=== PATIENT | male | born 1960 | race Caucasian/White ===

== ENCOUNTER → 2017-04-09 | Outpatient (CLI) | payer BC, OTHER ==
[~2017-04-09] MED LIST: CLON0.1T12 PO; HYDR-5688 PO; RANI-316 PO
[2017-04-09 14:30] LABS: BLOOD UREA NITROGEN 20 mg/dl (7-18); CARBON DIOXIDE 27 mmol/L (21-32); CREATININE 1.04 mg/dl (0.60-1.40); GLUCOSE 120 mg/dl (70-99); POTASSIUM 3.8 mmol/L (3.5-5.1); SODIUM 135 mmol/L (136-145)
== END | disposition home or self-care (01) ==
LOC: C.LABPVFM 08:26 → MERGE 08:26
PROVIDERS: ATTEND Family Medicine
DX: R51 Headache (principal); I10 Essential (primary) hypertension

== ENCOUNTER → 2017-04-29 | Outpatient (CLI) | payer OTHER ==
--- NOTE | 2017-04-29 08:15 | DIAGNOSTIC IMAGING REPORT ---
CT PELVIS NO IV/ORAL CONT (CT) CT DOSE: 500.04 mGycm CLINICAL HISTORY: RT GROIN PAIN,HX OF INGUINAL HERNIA REPAIR TECHNIQUE: The patient was scanned without intravenous or oral contrast. Helical images were obtained through the pelvis. A dose lowering technique was utilized adhering to the principles of ALARA. COMPARISON STUDY: Inguinal ultrasound dated 10/13/2016 FINDINGS: The distal abdominal aorta is of normal caliber. There is no iliac artery dilatation. There is no pathologic bowel dilatation. There are few scattered colonic diverticula. There is no evidence of acute diverticulitis. The appendix appears normal. There is mild bladder wall thickening. There are prostatic calcifications present. There is no evidence of pathologic adenopathy. There is gas present within the posterior aspect of the right iliac bone. This finding is not felt to be of acute clinical significance. There are sclerotic changes involving the right symphysis pubis. There are mild symphysis erosive changes. There are postsurgical changes of a right inguinal hernia repair. There is a fat-containing left inguinal hernia versus lipomatous inguinal canal. IMPRESSION: 1. 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 Postsurgical changes are prior right inguinal hernia repair 3. Small fat-containing left inguinal hernia versus lipomatous inguinal canal 4. Bladder wall thickening 5. Normal appendix Electronically signed by: Miles Allen M.D. 04/29/2017 8:14 AM Dictated Date/Time: 04/29/2017 8:07 AM
== END | disposition home or self-care (01) ==
LOC: C.CTS 07:55
PROVIDERS: ATTEND Surgery
DX: R10.30 Lower abdominal pain, unspecified (principal); Z98.890 Other specified postprocedural states

== ENCOUNTER 2017-10-13 13:58 | Emergency (ER) | payer OTHER ==
[~2017-10-13] VITALS: Ht 167.6 cm; Wt 83.1 kg
[~2017-10-13 13:58] MED LIST changes: +AMLO10TA3 PO; -CLON0.1T12 PO; -HYDR-5688 PO; +IBUP-1050 PO; +METO25TA3 PO; +NAPR-22 PO; -RANI-316 PO
[2017-10-13 14:02] VITALS: Ht 167.6 cm; Wt 83.1 kg
[2017-10-13 14:15] VITALS: O2SAT 97
[2017-10-13] MEDS ORDERED: ACETAMINOPHEN 500 MG TAB PO STA (14:27)
[2017-10-13] MEDS ORDERED: SODIUM CHLORIDE 0.9% 500ML 500 ML IV STA (14:27)
[2017-10-13] MEDS ORDERED: PROCHLORPERAZINE 5 MG/ML 2 ML VIAL IV STA (14:27)
[2017-10-13] MEDS ORDERED: DiphenhydrAMINE HCL 50 MG/ML VIAL IV STA (14:27)
--- NOTE | 2017-10-13 14:28 | EMERGENCY ROOM VISIT NOTE ---
History Report prepared by Misty: James Hernandez Under the Supervision of: Dr. Nael Hidalgo M.D. First contact with patient: 14:08 Chief Complaint: HYPERTENSION Stated Complaint: HIGH BLOOD PRESSURE History of Present Illness The patient is a 57 year old white male with a past medical history of aortic stenosis, CAD, GERD, HTN, inguinal hernia removal who presents to the ED with a cc of constant hypertension beginning earlier today. Positive mild headache, blurry vision, occasional alcohol use. Negative focal weakness, taking blood thinning medication, changes to medication, missing medication doses, recent falls, hurting himself, drug use, tobacco use, drinking caffeine, cough, runny nose, congestion. Pt states he was at his PCP's office to get his prescriptions refilled when he was told to come to the ED because he had high blood pressure. He reports he has had an intermittent headache that lasts most of the day for the past three weeks. Pt notes he already take medication for his HTN. He states he took two ibuprofen the other day within 16 hours. Source of History: patient Onset: earlier today Quality: other (HTN) Timing: constant Associated Symptoms: + headache, No cough, No weakness Note: Associated symptoms: blurry vision Denies: taking blood thinning medication, changes to medication, missing medication doses, recent falls, hurting himself, drug use, tobacco use, drinking caffeine, runny nose, congestion Review of Systems See HPI for pertinent positives and negatives. A total of ten systems were reviewed and were otherwise negative. Past Medical & Surgical Medical Problems: (1) Aortic stenosis (2) CAD (coronary artery disease) (3) Cardiac murmur (4) Gastroesophageal reflux (5) Hypertension (6) Inguinal hernia, right (7) Pilonidal cyst Surgical Problems: (1) History of surgical removal of pilonidal cyst (2) History of umbilical hernia repair (3) Status post right inguinal herniorrhaphy Family History Cancer Heart disease Hypertension Social History Smoking Status: Never Smoker Alcohol Use: occasionally Marital Status: Housing Status: lives with significant other Occupation Status: employed Current/Historical Medications Scheduled Hydrochlorothiazide (Hydrochlorothiazide), 1 TAB PO DAILY Metoprolol Succ (Toprol Xl) (Toprol-Xl), 25 MG PO DAILY Metoprolol Succinate (Toprol Xl), 1 TAB PO BID Scheduled PRN Ibuprofen (Advil), 600 MG PO DAILY PRN for prn Tramadol (Ultram), 1 TAB PO TID PRN for Pain Miscellaneous Medications Clonidine HCl (Clonidine HCl) Allergies Coded Allergies: Codeine (Verified Allergy, Intermediate, Rash, 10/13/17) Lisinopril (Unverified Allergy, Unknown, hives, 10/13/17) Physical Exam Vital Signs Date Time Temp Pulse Resp B/P (MAP) Pulse Ox O2 Delivery O2 Flow Rate FiO2 10/13/17 15:29 36.6 65 15 152/96 96 10/13/17 15:00 65 15 152/96 96 Room Air 10/13/17 14:41 83 18 167/100 97 Room Air 10/13/17 14:21 78 10/13/17 14:15 97 Room Air 10/13/17 14:02 36.6 78 20 177/115 97 Room Air Physical Exam GENERAL: Awake, alert, well-appearing, NAD HENT: Normocephalic, atraumatic. EYES: Normal conjunctiva. Sclera non-icteric. PERRL. No anisocoria. NECK: Supple. No nuchal rigidity. FROM. RESPIRATORY: CTAB, no rhonchi, wheezing, crackles CARDIAC: RRR, no MRG ABDOMEN: Soft, NTND, BS+ MSK: No chest wall TTP, no LE edema NEURO: GCS 15, CN 2-12 intact, moves all 4s on command SKIN: No jaundice noted. Decreased pigmentation in the bilateral, distal, upper extremities. Medical Decision & Procedures ER Provider Diagnostic Interpretation: Radiology results as stated below per my review and radiologist interpretation: CT OF THE HEAD WITHOUT CONTRAST CLINICAL HISTORY: Persistent frontal headache. Hypertension. COMPARISON STUDY: No previous studies for comparison. CT DOSE: 537.48 mGy.cm TECHNIQUE: Helical axial images of the head were obtained without IV contrast. Automated exposure control was utilized for the study. A dose lowering technique was utilized adhering to the principles of ALARA. FINDINGS: No acute intracranial hemorrhage, midline shift or mass effect is present. Ventricular system is unremarkable. Basilar cisterns are patent. There are no extra-axial collections. Morton-white differentiation is maintained. There are no findings to suggest acute dural sinus thrombosis or acute territorial infarct. Minimal ethmoid sinus mucosal thickening is noted. Mastoid air cells are clear. There are no significant calvarial abnormalities. IMPRESSION: No acute intracranial findings. Electronically signed by: Serge Bolton M.D. 10/13/2017 2:53 PM Dictated Date/Time: 10/13/2017 2:51 PM Laboratory Results 10/13/17 14:20 Red Blood Count 5.14, Mean Corpuscular Volume 91.1, Mean Corpuscular Hemoglobin 32.5, Mean Corpuscular Hemoglobin Concent 35.7, Mean Platelet Volume 10.1, Neutrophils (%) (Auto) 74.3, Lymphocytes (%) (Auto) 16.1, Monocytes (%) (Auto) 4.8, Eosinophils (%) (Auto) 3.2, Basophils (%) (Auto) 0.9, Neutrophils # (Auto) 4.15, Lymphocytes # (Auto) 0.90, Monocytes # (Auto) 0.27, Eosinophils # (Auto) 0.18, Basophils # (Auto) 0.05 10/13/17 14:20 Test 10/13/17 14:20 White Blood Count 5.59 K/uL (4.8-10.8) Red Blood Count 5.14 M/uL (4.7-6.1) Hemoglobin 16.7 g/dL (14.0-18.0) Hematocrit 46.8 % (42-52) Mean Corpuscular Volume 91.1 fL (80-100) Mean Corpuscular Hemoglobin 32.5 pg (25-34) Mean Corpuscular Hemoglobin Concent 35.7 g/dl (32-36) Platelet Count 120 K/uL (130-400) Mean Platelet Volume 10.1 fL (7.4-10.4) Neutrophils (%) (Auto) 74.3 % Lymphocytes (%) (Auto) 16.1 % Monocytes (%) (Auto) 4.8 % Eosinophils (%) (Auto) 3.2 % Basophils (%) (Auto) 0.9 % Neutrophils # (Auto) 4.15 K/uL (1.4-6.5) Lymphocytes # (Auto) 0.90 K/uL (1.2-3.4) Monocytes # (Auto) 0.27 K/uL (0.11-0.59) Eosinophils # (Auto) 0.18 K/uL (0-0.5) Basophils # (Auto) 0.05 K/uL (0-0.2) RDW Standard Deviation 42.4 fL (36.4-46.3) RDW Coefficient of Variation 12.8 % (11.5-14.5) Immature Granulocyte % (Auto) 0.7 % Immature Granulocyte # (Auto) 0.04 K/uL (0.00-0.02) Prothrombin Time 10.5 SECONDS (9.0-12.0) Prothromb Time International Ratio 1.0 (0.9-1.1) Activated Partial Thromboplast Time 26.4 SECONDS (21.0-31.0) Partial Thromboplastin Ratio 1.0 Anion Gap 10.0 mmol/L (3-11) Est Creatinine Clear Calc Drug Dose 73.4 ml/min Estimated GFR () 84.4 Estimated GFR (Non- 72.8 BUN/Creatinine Ratio 17.8 (10-20) Calcium Level 8.7 mg/dl (8.5-10.1) Laboratory results reviewed by me Medications Administered Medications (Trade) Dose Ordered Sig/Brien Route Start Time Stop Time Status Last Admin Dose Admin Prochlorperazine Edisylate (Compazine Inj) 10 mg NOW STAT IV 10/13/17 14:27 10/13/17 14:31 DC 10/13/17 14:36 10 MG Acetaminophen (Tylenol Tab) 1,000 mg NOW STAT PO 10/13/17 14:27 10/13/17 14:31 DC 10/13/17 14:36 1,000 MG Diphenhydramine HCl (Benadryl Inj) 25 mg NOW STAT IV 10/13/17 14:27 10/13/17 14:31 DC 10/13/17 14:37 25 MG Sodium Chloride 500 ml @ 500 mls/hr Q1H STAT IV 10/13/17 14:27 10/13/17 15:26 DC 10/13/17 14:37 500 MLS/HR ECG Per My Interpretation Indication: other (HTN) Rate (beats per minute): 74 Rhythm: normal sinus Findings: Q waves (AVF), left axis deviation, other (Normal intervals.) ED Course 1418: The patient was evaluated in room A10. A complete history and physical exam was performed. 151: I reevaluated the patient. Discussed results and discharge instructions: he verbalized understanding and agreement. The patient is ready for discharge. Medical Decision The patient is a 57 year old white male with a past medical history of aortic stenosis, CAD, GERD, HTN, inguinal hernia removal who presents to the ED with a cc of constant hypertension beginning earlier today. Nursing notes reviewed. Ancillary studies and prior records reviewed. Differential diagnosis: Etiologies such as benign hypertension, hypertensive emergency, cardiovascular pathology, pheochromocytoma, electrolyte abnormality, renal disease, endorgan damage, as well as others were entertained. Patient was seen and evaluated the bedside. Patient does have a known history of hypertension. Patient states that he was seen for refills and he did relate that he had some headache with blurry vision. The patient does not use any corrective lenses. Patient was referred here for further evaluation and treatment with regard to his hypertension and additional symptoms. Patient has a nonfocal neurologic exam. The patient's vision is grossly intact. Patient does not complain of any chest pain or abdominal pain. Patient does complain of some headache that this is been chronic greater than 3 weeks in duration. The patient denies any recent trauma. The patient's headache was treated symptomatically and the patient did have some blood work completed along with a CT of the brain. Patient's blood work is fairly unremarkable. The patient CT brain negative acute. The patient's headache improved and the patient does not have any overt more concerning neurologic symptoms. I did discuss sometimes the high blood pressure may cause headache or vice versa. I did look the patient's prescription medications and stated that the patient may start taking his Toprol twice daily. I do believe that this is a reasonable approach. I did discuss some lifestyle modifications which included diet, exercise, and cessation of alcohol use. I told the patient to return if he has any worsening symptoms we did discuss him at length. The patient was told he had some mild hypokalemia and may replete this in his diet. Patient's blood pressure did improve with resolution of his headache. Patient was given strict follow-up, discharge, and return precautions. All questions were answered. Patient was deemed suitable for outpatient follow-up at this time. Patient agreed with the plan of care and was safely discharged home. Medication Reconcilliation Current Medication List: was personally reviewed by me Blood Pressure Screening Patient's blood pressure: Elevated blood pressure Blood pressure disposition: Referred to PCP Impression Primary Impression: Hypertension Additional Impressions: Hypokalemia Headache Encounter for dietary counseling and surveillance Encounter for alcohol cessation counseling Scribe Attestation The scribe's documentation has been prepared under my direction and personally reviewed by me in its entirety. I confirm that the note above accurately reflects all work, treatment, procedures, and medical decision making performed by me. Departure Information Dispostion Home / Self-Care Prescriptions Metoprolol Succinate (TOPROL XL) 25 Mg Tab 1 TAB PO BID for 30 Days, #60 TAB 1 Refill Prov: Nael Hidalgo M.D. 10/13/17 Referrals Sisi Soto M.D. (PCP) Forms HOME CARE DOCUMENTATION FORM, IMPORTANT VISIT INFORMATION, WORK / SCHOOL INSTRUCTIONS Patient Instructions Hypertension Control, My [facility] Additional Instructions Please return to the emergency department if you have worsening or recurrent symptoms not amenable to at-home treatment. Please call for a follow-up appointment with her primary care physician. Please take your medications as prescribed. If you have other concerns and/or complaints please feel free to also call your primary care physician's office or return the ED for further evaluation, management, and treatment. Take your medications as prescribed. You will now use the new prescription of taking the Toprol twice a day. You have been examined and treated today on an emergency basis only. This is not a substitute for, or an effort to provide, complete comprehensive medical care. It is impossible to recognize and treat all injuries or illnesses in a single emergency department visit. It is therefore important that you follow up closely with [facility], your PCP, and/or your specialist(s). Call as soon as possible for an appointment. Thank you for your time and consideration. I look forward to speaking with you again soon. Please don't hesitate to call us if you have any questions. Problem Qualifiers Primary Impression: Hypertension Hypertension type: unspecified Qualified Codes: I10 - Essential (primary) hypertension Additional Impressions: Headache Headache type: unspecified Headache chronicity pattern: chronic headache Intractability: not intractable Qualified Codes: R51 - Headache
[2017-10-13 14:41] LABS: BASO % 0.9 %; BASO ABS # 0.05 K/uL (0-0.2); EOS % 3.2 %; EOS ABS # 0.18 K/uL (0-0.5); HEMATOCRIT 46.8 % (42-52); HEMOGLOBIN 16.7 g/dL (14.0-18.0); IG# 0.04 K/uL (0.00-0.02); LYMPH % 16.1 %; MEAN CELL VOLUME 91.1 fL (80-100); MEAN CORPUSCULAR HEMOGLOBIN 32.5 pg (25-34); MEAN CORPUSCULAR HGB CONC 35.7 g/dl (32-36); MEAN PLATELET VOLUME 10.1 fL (7.4-10.4); MONO % 4.8 %; MONO ABS # 0.27 K/uL (0.11-0.59); NEUT % 74.3 %; NEUT ABS # 4.15 K/uL (1.4-6.5); PLATELET COUNT 120 K/uL (130-400); RED CELL DISTRIBUTION WIDTH CV 12.8 % (11.5-14.5); RED CELL DISTRIBUTION WIDTH SD 42.4 fL (36.4-46.3); WHITE BLOOD COUNT 5.59 K/uL (4.8-10.8)
[2017-10-13] MEDS ORDERED: TRAM-10 PO (14:48)
[2017-10-13] MEDS ORDERED: HYDR12.55 PO (14:48)
[2017-10-13] MEDS ORDERED: CLON-460 (14:48)
[2017-10-13 14:49] LABS: PTT PATIENT 26.4 SECONDS (21.0-31.0)
--- NOTE | 2017-10-13 14:55 | DIAGNOSTIC IMAGING REPORT ---
CT OF THE HEAD WITHOUT CONTRAST CLINICAL HISTORY: Persistent frontal headache. Hypertension. COMPARISON STUDY: No previous studies for comparison. CT DOSE: 537.48 mGy.cm TECHNIQUE: Helical axial images of the head were obtained without IV contrast. Automated exposure control was utilized for the study. A dose lowering technique was utilized adhering to the principles of ALARA. FINDINGS: No acute intracranial hemorrhage, midline shift or mass effect is present. Ventricular system is unremarkable. Basilar cisterns are patent. There are no extra-axial collections. Morton-white differentiation is maintained. There are no findings to suggest acute dural sinus thrombosis or acute territorial infarct. Minimal ethmoid sinus mucosal thickening is noted. Mastoid air cells are clear. There are no significant calvarial abnormalities. IMPRESSION: No acute intracranial findings. Electronically signed by: Serge Bolton M.D. 10/13/2017 2:53 PM Dictated Date/Time: 10/13/2017 2:51 PM
[2017-10-13 14:58] LABS: CALCIUM 8.7 mg/dl (8.5-10.1); CREATININE 1.11 mg/dl (0.60-1.40); POTASSIUM 3.2 mmol/L (3.5-5.1)
[2017-10-13] MEDS ORDERED: METO-478 PO (15:18)
[2017-10-13 15:29] VITALS: BP 152/96; PULSE 65; TEMP 36.6; O2SAT 96
== END 2017-10-13 15:40 | disposition home or self-care (01) ==
LOC: C.EDB 13:59 → C.EDA 15:40
DX: I10 Essential (primary) hypertension (principal); R51 Headache; E87.6 Hypokalemia; Z71.6 Tobacco abuse counseling; Z71.3 Dietary counseling and surveillance; I35.0 Nonrheumatic aortic (valve) stenosis; I25.10 Atherosclerotic heart disease of native coronary artery without angina pectoris; K21.9 Gastro-esophageal reflux disease without esophagitis; Z79.899 Other long term (current) drug therapy; Z88.5 Allergy status to narcotic agent

== ENCOUNTER 2022-04-20 06:27 | Observation (INO) ==
--- NOTE | 2022-03-06 11:10 | PAT Medication Instructions ---
Medication Instructions Date of Service March 06, 2022 Home Medications Medication Instructions Recorded valsartan 160 0.5 tab PO BID #30 tabs 07/24/ mg-hydrochlorothiazide 25 mg tablet hydrochlorothiazide 25 mg tablet 25 mg PO BID #60 tabs 08/28/21 potassium chloride 20 mEq 20 meq PO BID #180 tabs 09/25/21 tablet,extended release metoprolol succinate 50 mg 25 mg PO BID #30 tabs 10/09/21 tablet,extended release 24 hr tamsulosin 0.4 mg capsule (Flomax) 0.4 mg PO HS #90 caps 12/18/21 oxycodone-acetaminophen 5 mg-325 1 tab PO Q6H PRN pain #30 tabs 01/02/22 mg tablet (Percocet) losartan 25 mg tablet 25 mg PO BID #60 tabs 01/23/22 tramadol 50 mg tablet 50 mg PO Q8H PRN pain #30 tabs 02/17/22 ibuprofen 200 mg tablet (Advil) 600 mg PO BID PRN qxufqbb-iicmtqqhlskra-aelivrio 250 mg-250 mg-65 mg tablet 1 tab PO TID PRN valsartan 160 mg-hydrochlorothiazide 25 mg tablet 0.5 tab PO BID gabapentin 100 mg capsule 100 mg PO TID PRN hydrochlorothiazide 25 mg tablet 25 mg PO BID potassium chloride 20 mEq tablet,extended release 20 meq PO BID metoprolol succinate 50 mg tablet,extended release 24 hr 25 mg PO BID tamsulosin 0.4 mg capsule (Flomax) 0.4 mg PO HS oxycodone-acetaminophen 5 mg-325 mg tablet (Percocet) 1 tab PO Q6H PRN losartan 25 mg tablet 25 mg PO BID tramadol 50 mg tablet 50 mg PO Q8H PRN amlodipine 10 mg tablet 10 mg PO QAM clonidine HCl 0.1 mg tablet 0.1 mg PO QAM meloxicam 15 mg tablet 15 mg PO QAM Continue as directed gabapentin 100 mg capsule 100 mg PO TID PRN(if needed) ASK your surgeon for instructions ibuprofen 200 mg tablet (Advil) 600 mg PO BID PRN hozfzwi-vofjmyursjmos-gcllaphv 250 mg-250 mg-65 mg tablet 1 tab PO TID PRN meloxicam 15 mg tablet 15 mg PO QAM DO NOT take the morning of surgery valsartan 160 mg-hydrochlorothiazide 25 mg tablet 0.5 tab PO BID hydrochlorothiazide 25 mg tablet 25 mg PO BID potassium chloride 20 mEq tablet,extended release 20 meq PO BID losartan 25 mg tablet 25 mg PO BID Take morning of surgery With a small sip of water, OTHERWISE NOTHING TO EAT OR DRINK AFTER MIDNIGHT: metoprolol succinate 50 mg tablet,extended release 24 hr 25 mg PO BID oxycodone-acetaminophen 5 mg-325 mg tablet (Percocet) 1 tab PO Q6H PRN(if needed) tramadol 50 mg tablet 50 mg PO Q8H PRN(if needed) amlodipine 10 mg tablet 10 mg PO QAM clonidine HCl 0.1 mg tablet 0.1 mg PO QAM Take evening before surgery valsartan 160 mg-hydrochlorothiazide 25 mg tablet 0.5 tab PO BID hydrochlorothiazide 25 mg tablet 25 mg PO BID potassium chloride 20 mEq tablet,extended release 20 meq PO BID metoprolol succinate 50 mg tablet,extended release 24 hr 25 mg PO BID tamsulosin 0.4 mg capsule (Flomax) 0.4 mg PO HS oxycodone-acetaminophen 5 mg-325 mg tablet (Percocet) 1 tab PO Q6H PRN(if needed) losartan 25 mg tablet 25 mg PO BID tramadol 50 mg tablet 50 mg PO Q8H PRN(if needed) Other Notes If you have any questions please call us at [phone] or [phone] or [phone] or [phone]
--- NOTE | 2022-03-12 12:56 | Anesthesiology Consultation ---
Date of Service March 12, 2022 Assessment & Plan (1) Encounter for pre-operative examination: - listed CAD in PMHx, pt denies, no additional details available. Awaiting PCP workload note response. Outpatient joint assessment: Patient is currently scheduled for inpatient pathway. If re-evaluated pending system levels during current pandemic/surgeon requests outpatient pathway, patient is not acceptable candidate for outpatient joint program from anesthesia standpoint. Chart Review Chart Review: Pending: Refer to Additional Notes / Consult section and Patient seen in Pre Admission Testing Teaching & Discussion Pre-Anesthesia Teaching/Discussion Notes: Instructed NPO after midnight before surgery, except medications with 15 cc of water. Medication instructions provided according to the PAT guidelines. History Surgery Operation Date: 04/20/22 07:30 Proposed Procedures p Left Total Knee Arthroplasty - Vincent Todd DO Height/Weight Height: 5 ft 6 in Weight: 85.275 kg Allergies Allergy/AdvReac Type Severity Reaction Status Date / Time codeine Allergy Intermediate Rash Verified 03/06/22 08:50 lisinopril Allergy Intermediate hives Verified 03/06/22 08:50 Medications Home Medications Medication Instructions Recorded Confirmed Last Taken ibuprofen 200 mg tablet (Advil) 600 mg PO BID PRN Pain 07/14/18 03/06/22 10/01/18 gdcqgha-apqkxqcyvwfjz-tuqqokgl 250 1 tab PO TID PRN Migraine Headache 12/02/18 03/06/22 12/12/18 11:00 mg-250 mg-65 mg tablet #30 tabs gabapentin 100 mg capsule 100 mg PO TID PRN Pain 07/11/21 03/06/22 Unknown hydrochlorothiazide 25 mg tablet 25 mg PO BID #60 tabs 08/28/21 03/06/22 Unknown potassium chloride 20 mEq 20 meq PO BID #180 tabs 09/25/21 03/06/22 Unknown tablet,extended release metoprolol succinate 50 mg 25 mg PO BID #30 tabs 10/09/21 03/06/22 Unknown tablet,extended release 24 hr tamsulosin 0.4 mg capsule (Flomax) 0.4 mg PO HS #90 caps 12/18/21 03/06/22 Unknown oxycodone-acetaminophen 5 mg-325 1 tab PO Q6H PRN pain #30 tabs 01/02/22 03/06/22 Unknown mg tablet (Percocet) losartan 25 mg tablet 25 mg PO BID #60 tabs 01/23/22 03/06/22 Unknown tramadol 50 mg tablet 50 mg PO Q8H PRN pain #30 tabs 02/17/22 03/06/22 Unknown amlodipine 10 mg tablet 10 mg PO QAM 03/06/22 03/06/22 Unknown clonidine HCl 0.1 mg tablet 0.1 mg PO QAM 03/06/22 03/06/22 Unknown meloxicam 15 mg tablet 15 mg PO QAM 03/06/22 03/06/22 Unknown Past Medical History Medical History (Updated 03/12/22 @ 13:45 by Amanda Gomez PA-C) Aortic stenosis listed in PMHx, 02/27/22 echo reports sclerotic aortic valve without signifi cant stenosis. follows with [facility] BPH (benign prostatic hyperplasia) CAD (coronary artery disease) pt denies, reports has never needed to see cardiology, no h/o cath or stress test; listed in record 05/19/17 GERD (gastroesophageal reflux disease) controlled, stable per pt Hearing loss HTN (hypertension) controlled, stable per pt Hx of colonic polyps Hx of renal calculi LVH (left ventricular hypertrophy) moderate URI (upper respiratory infection) symptoms of congestion, runny nose early 02/2022: mild nasal congestion at present, pt to call office if not resolved by surgery date Patient denies h/o stroke, seizures, heart attack, heart failure, DM, blood clots or blood transfusions. Exercise / Class Metabolic Activity II 4-5 Yardwork/Stairs/Walk up hill (denies CP or SOB with 1 FOS) Past Family History Family History Mother Pancreatic cancer Father Cardiovascular disease Cardiac disorder Other No family history of adverse response to anesthesia Denies family history of Ovarian cancer Prostate cancer Myocardial infarction Breast cancer Colorectal cancer Past Surgical History Surgical History (Updated 03/12/22 @ 13:12 by Amanda Gomez PA-C) History of colonoscopy History of cystoscopy 10/03/18 cyst stent 10/03/18 LMA#5. History of hernia repair 2017 RIGHT INGUINAL HERNIA 11/02/16 - MAC #4, ETT#7.5, HiLo oral, Grade 1 View History of surgical removal of pilonidal cyst History of tooth extraction History of umbilical hernia repair Hx of abdominal surgery removal of right inguinal hernia mesh removal 02/2021. Past Anesthesia History No Hx of Anesthesia Complications and No Family Hx of Anesthesia Complications History of PONV No Hx of PONV and No Hx of Motion Sickness Social History Smoking Status: Former smoker tobacco type: cigarettes Do You Dip or Chew Tobacco: No Smoking End Date: 1985 Hx Alcohol Use: Yes Alcohol type: beer alcohol intake frequency: 3 or more drinks per day (4 drinks daily) Hx Substance Use: No substance use type: does not use Review of Systems Snoring, denies witnessed apneas. Patient denies chest pain, shortness of breath, dyspnea on exertion, fever, chills, cough, wheezing, or palpitations. Physical Exam Vital Signs Vitals BP 144/85 P 69 TEMP 98.8 SP02 97% on RA RESP 18 Physical Full cervical extension range of motion without pain TMD 3.5 finger breadths Mallampati Score 3 Dentition: several chipped teeth; denies loose teeth, caps/crowns, implants or bridges Lungs: normal respiratory effort. Clear throughout to auscultation, no adventitious breath sounds Cardiac: regular rate and rhythm, 2/6 systolic murmur noted Carotid arteries: negative bruit bilat Lab Results Anesthesia Preop Results Results Anesthesia Widget: WBC 5.64 K/ul (4.8-10.8) 03/12/22 Hgb 14.8 g/dl (14.0-18.0) 03/12/22 Hct 41.6 % (40.1-51.0) 03/12/22 Plt 130 K/uL (130-400) 03/12/22 Na 135 mmol/L (136-145) L 03/12/22 K 3.4 mmol/L (3.5-5.1) L 03/12/22 Cl 97 mmol/L (98-107) L 03/12/22 CO2 31 mmol/L (21-32) 03/12/22 BUN 23 mg/dl (6-23) 03/12/22 Creat 0.78 mg/dl (0.6-1.4) 03/12/22 Glucose Level 103 mg/dl (70-99(Fasting)) H 03/12/22 PT 10.6 Seconds (9.0-12.0) 03/12/22 PTT 28.3 Seconds (21.0-31.0) 03/12/22 INR 1.0 (0.9-1.1) 03/12/22 HA1c 4.8 % (4.5-5.6) 03/12/22 Blood Type O Positive 03/12/22 Antibody Screen NEGATIVE 03/12/22 Testing Electrocardiogram Date: 03/12/22 NSR, rate 66 bpm Echocardiogram Date: 02/27/22 EF 60-65% No LV regional wall motion abnormalities Moderate cLVH Sclerotic aortic valve without significant stenosis Mild mitral regurgitation Mild tricuspid regurgitation COVID-19 Risk Screen Screening Information COVID-19 Screen Date: 03/12/22 Exposure 21 Days Family/Household +COVID Last 21 Days: No Exposure 10 Days Any COVID Exposure Last 10 Days: No Symptoms Last 10 Days Experienced COVID Sx Last 10 Days: No + COVID 0-90 Days COVID + in Last 0-90 Days: No
--- NOTE | 2022-04-16 16:33 | History & Physical Report ---
Date of Service April 16, 2022 Assessment & Plan (1) Left knee DJD: We will proceed with a left total knee arthroplasty. Postoperatively he will be started on aspirin for DVT prophylaxis and kept overnight in the hospital for postoperative medical management. He plans to use energy physical therapy upon discharge. History of Present Illness Chief Complaint: Osteoarthritis of the left knee. Primary Care Provider: Agus Falcon DO Agus is a pleasant 61-year-old male who has been dealing with chronic worsening left knee pain. X-rays and clinical examination with diagnostics for advanced osteoarthritis of the left knee. After failing extensive conservative treatment, he presents to the office today to discuss knee replacement surgery. . Allergies Allergy/AdvReac Type Severity Reaction Status Date / Time codeine Allergy Intermediate Rash Verified 03/06/22 08:50 lisinopril Allergy Intermediate hives Verified 03/06/22 08:50 Home Medications Medication Instructions Recorded Confirmed Type ibuprofen 200 mg tablet (Advil) 600 mg PO BID PRN Pain 07/14/18 03/06/22 History zbnaaxi-nsdloebyopwdo-dniqbhtn 250 1 tab PO TID PRN Migraine Headache 12/02/18 03/06/22 History mg-250 mg-65 mg tablet #30 tabs gabapentin 100 mg capsule 100 mg PO TID PRN Pain 07/11/21 03/06/22 History hydrochlorothiazide 25 mg tablet 25 mg PO BID #60 tabs 08/28/21 03/06/22 Rx potassium chloride 20 mEq 20 meq PO BID #180 tabs 09/25/21 03/06/22 Rx tablet,extended release metoprolol succinate 50 mg 25 mg PO BID #30 tabs 10/09/21 03/06/22 Rx tablet,extended release 24 hr tamsulosin 0.4 mg capsule (Flomax) 0.4 mg PO HS #90 caps 12/18/21 03/06/22 Rx oxycodone-acetaminophen 5 mg-325 1 tab PO Q6H PRN pain #30 tabs 01/02/22 03/06/22 Rx mg tablet (Percocet) losartan 25 mg tablet 25 mg PO BID #60 tabs 01/23/22 03/06/22 Rx amlodipine 10 mg tablet 10 mg PO QAM 03/06/22 03/06/22 History clonidine HCl 0.1 mg tablet 0.1 mg PO QAM 03/06/22 03/06/22 History meloxicam 15 mg tablet 15 mg PO QAM PRN pain #30 tabs 03/31/22 Rx oxycodone-acetaminophen 5 mg-325 1 tab PO Q6H PRN pain #30 tabs 04/03/22 Rx mg tablet (Percocet) tramadol 50 mg tablet 50 mg PO Q8H PRN pain #30 tabs 04/14/22 Rx Past Med/Surg History Medical History Aortic stenosis listed in PMHx, 02/27/22 echo reports sclerotic aortic valve without significant stenosis. follows [place] [facility] BPH (benign prostatic hyperplasia) CAD (coronary artery disease) pt denies, reports has never needed to see cardiology, no h/o cath or stress test; listed in record 05/19/17 GERD (gastroesophageal reflux disease) controlled, stable per pt Hearing loss HTN (hypertension) controlled, stable per pt Hx of colonic polyps Hx of renal calculi LVH (left ventricular hypertrophy) moderate URI (upper respiratory infection) symptoms of congestion, runny nose early 02/2022: mild nasal congestion at present, pt to call office if not resolved by surgery date Surgical History History of colonoscopy History of cystoscopy 10/03/18 cyst stent 10/03/18 LMA#5. History of hernia repair 2017 RIGHT INGUINAL HERNIA 11/02/16 - MAC #4, ETT#7.5, HiLo oral, Grade 1 View History of surgical removal of pilonidal cyst History of tooth extraction History of umbilical hernia repair Hx of abdominal surgery removal of right inguinal hernia mesh removal 02/2021. Family History Mother Pancreatic cancer Father Cardiovascular disease Cardiac disorder Other No family history of adverse response to anesthesia Denies family history of Ovarian cancer Prostate cancer Myocardial infarction Breast cancer Colorectal cancer Social History Smoking Status: Former smoker Tobacco Type: Cigarettes Second Hand Exposure: No; Hx Alcohol Use: Yes Alcohol type: beer Hx Substance Use: No Preferred Language: Spanish Communication Ability: Effective Visual Impairment: No Limitations Hearing Ability: Hard of Hearing Medical Assistant Cardiology Required: No Beliefs That Will Affect Care: None marital status: Current Living Situation: Spouse current occupational status: employed current occupation: auto repair Childhood Exposure to Second-Hand Smoke: No Dental Care, Regularly: No Physical Activity Frequency: Does not Exercise Seatbelt Use: never Sunscreen Use: No Assistive Devices: None Review of Systems All systems reviewed & are unremarkable except as noted in HPI & below. Physical Exam On physical examination of the left knee, he is a slight varus deformity. He has pain over the distal medial femoral condyle. He is range of motion from 0 to 120 degrees.. Constitutional WD/WN, vitals as above Eyes PERRL, conjunctivae normal, anicteric sclerae ENMT external ear and nose normal, oropharynx normal Neck trachea midline, no thyromegaly Respiratory normal respiratory effort, lungs clear to auscultation Cardiovascular RRR, no murmur, no edema Gastrointestinal (Abdomen) normal bowel sounds, soft, nontender, no hepatosplenomegaly Skin no rashes, warm and dry Psychiatric A+Ox3, euthymic affect Results & Data Results & Data Laboratory Results . Diagnostic Findings X-rays of the left knee show advanced arthritis with joint space narrowing, osteophyte formation, and jyjm-lj-rirn articulation. PG Care Time/CCT Total # of Minutes Spent Total Time Spent with Patient: Total time spent is greater than 50% in coordination of care (as documented) at patient's floor/unit and/or counseling patient: Coding Level of Care Code None Diagnoses Left knee DJD M17.12
[~2022-04-20 06:27] MED LIST changes: +ACETAMINOPHEN 500 MG TAB PO SCH; -AMLO10TA3 PO; +BUPIVACAINE 0.5 % 5 MG/1 ML PF 10ML VIAL ONE; +FAMOTIDINE 20 MG TAB PO SCH; +GABAPENTIN 600 MG DOSE PO SCH; -IBUP-1050 PO; +LR 500ML BOLUS, THEN 15ML/HR IV SCH; +LR 60ML/HR IV SCH; -METO25TA3 PO; -NAPR-22 PO; +ORTHO JOINT MIX INFIL SCH; +ROPIVACAINE 0.5% 5 MG/ML 30 ML VIAL ONE; +TRANEXAMIC ACID 1,000 MG **IV Intra-op IV SCH; +TRANEXAMIC ACID 1,000 MG **IV Pre-op IV SCH; +ceFAZolin 2000MG 2,000 MG/15 ML SYR IV SCH; +dexAMETHasone 4 MG TAB PO SCH
[2022-04-20] MEDS ORDERED: PROPOFOL IV EMULSION 10 MG/ML 20 ML VIAL IV ONE (07:22)
[2022-04-20] MEDS ORDERED: MIDAZOLAM HCL 1 MG/ML 2ML VIAL ONE (07:22)
[2022-04-20] MEDS ORDERED: LIDOCAINE 2% MPF LOCAL 5 ML VIAL INFIL ONE (07:22)
[2022-04-20] MEDS ORDERED: ONDANSETRON INJ 2 MG/ML 2 ML VIAL ONE (07:22)
[2022-04-20] MEDS ORDERED: ACETAMINOPHEN 500 MG TAB ONE (07:25)
[2022-04-20] MEDS ORDERED: dexAMETHasone 4 MG TAB PO ONE (07:25)
[2022-04-20] MEDS ORDERED: ceFAZolin 2,000 MG/15 ML IV PUSH IV ONE (07:26)
[2022-04-20] MEDS ORDERED: TRANEXAMIC ACID / 0.7% NACL 1000MG/100ML BAG IV ONE (07:26)
[2022-04-20] MEDS ORDERED: GABAPENTIN 300 MG CAP ONE (07:26)
[2022-04-20] MEDS ORDERED: FAMOTIDINE 20 MG TAB ONE (07:26)
[2022-04-20] MEDS ORDERED: ATROPINE SULFATE 0.1 MG/ML 10ML SYR IV PRN (07:49)
[2022-04-20] MEDS ORDERED: ePHEDrine sulfate 50 MG/ML AMP IV PRN (07:49)
[2022-04-20] MEDS ORDERED: ONDANSETRON INJ 2 MG/ML 2 ML VIAL IV PRN ×2 (07:49→11:34)
[2022-04-20] MEDS ORDERED: fentaNYL citrate 100 MCG/2 ML VIAL IV PRN (07:49)
--- NOTE | 2022-04-20 08:27 | History & Physical Bridge Note ---
Date of Service April 20, 2022 History & Physical Bridge Note I have examined the patient, reviewed the History & Physical and in the interval since the performance of the History & Physical I have noted the following changes of clinical significance: no changes noted
[2022-04-20] MEDS ORDERED: ORTHO JOINT ANESTHETIC ONE (09:09)
[2022-04-20] MEDS: ceFAZolin 2000MG 2,000 MG/15 ML SYR IV SCH ×4 (09:11→23:54)
--- NOTE | 2022-04-20 10:20 | Operative Report ---
PG Post Operative Report Pre & Post Diagnosis Operation Date: 04/20/22 09:05 Pre-Op Diagnosis: Degenerative joint disease knee left. Post-Op Diagnosis: Degenerative joint disease knee left. I identified the patient and participated in the time-out.: Yes Procedure Operation Date: 04/20/22 09:05 Actual Procedures p Left Total Knee Arthroplasty(Left) - Vincent Todd DO Surgeon Vincent Todd DO Drywall Installer Vincent Strong PA-C Estimated Blood Loss 20 Findings Consistent with Post-Op Diagnosis Specimens Left femoral and tibial bone Description of Procedure Implants used: I used a Elvie Persona total knee arthroplasty system with a size 8 standard femur, E tibia, 31 oval patella, and a size 11 medial congruent polyethylene bearing. All components were cemented in place with Biomet cement. Agus arrived [facility] for the above procedure. He was seen in the preoperative holding area and the operative extremity was identified and signed. He was given a preoperative antibiotic, TXA, a spinal anesthetic and an adductor nerve block. He was taken back to the operating room and laid on the table in supine position. He was given basic sedation. The operative knee was then prepped and draped in sterile fashion. A timeout was done, and the patient and the operative extremity was properly identified. A midline incision was made directly over the patella. Dissection was taken down to the extensor mechanism. A midvastus arthrotomy was used. The medial retinaculum was released and the fat pad was mostly excised. The knee was flexed and the ACL, PCL, and meniscus were removed. A drill was sent down the center of the femoral canal followed by an intramedullary edilma. Off that edilma a distal femoral cutting block was placed. 9 mm was resected off the distal femur at 5 of valgus. A posterior referencing AP sizing guide was then placed on the distal femur. The femur measured to be a size 8. 2 drill holes were placed in 3 of external rotation. A 4-in-1 cutting block was then impacted into place. Anterior, posterior, and chamfer cuts were then made. The proximal tibia was then exposed. An external tibial alignment guide was placed. A tibial cut guide was then anchored in place and the proximal tibia was then resected. The posterior aspect of the knee was then opened up and any additional meniscus fragments and osteophytes were removed. The tibia measured to be a size E. The tibial plate was then placed in the appropriate rotation and the tibia was drilled and punched. Trial components were then placed. I used a size 11 medial congruent polyethylene insert. The knee was brought through a full range of motion and felt to be stable. The peg holes for the femoral component were then drilled. The patella was then everted and 9 mm was resected off the posterior aspect of the patella. The patella measured to be a size 31 oval. 3 peg holes were then drilled. A trial patella was placed. The knee was once again brought through a full range of motion and felt to be stable. Trial components were then removed. The surrounding soft tissues were injected with 100 cc of an orthopedic pain control cocktail. All components were then cemented into place with Biomet cement. The final polyethylene insert was then snapped into place. Once cement was dry the tourniquet was deflated. Hemostasis was obtained. A dilute betadyne lavage was then done for 3 minutes. The joint was then irrigated with normal saline solution. The midvastus arthrotomy was then closed with #1 Vicryl suture. The skin was closed with 2-0 Vicryl, 3-0V lock suture, and bao. A soft compressive dressing was placed. He was then transferred to a hospital bed and taken to the postanesthesia care unit in stable condition. He tolerated the procedure well. Vincent Strong PA-C, was present for the entire procedure. He was critical for patient positioning, prepping, draping, retraction exposure, wound closure and application of sterile dressing. I attest to the content of the Intraoperative Record and any orders documented therein. Any exceptions are noted below.
[2022-04-20] MEDS ORDERED: ePHEDrine sulfate 50 MG/ML AMP ONE (10:27)
--- NOTE | 2022-04-20 11:21 | XRay Report ---
LEFT KNEE 2 VIEWS History: Left total knee arthroplasty. Degenerative arthritis. Postop. FINDINGS: The patient is status post a left total knee arthroplasty. The hardware is intact. No fract ure or dislocation. Skin bao are in place. IMPRESSION: Left total knee arthroplasty. No evidence for hardware complication. ACT 112: Negative or not required by law. Electronically signed by: Jw Savage M.D. 04/20/2022 11:20 AM
[2022-04-20] MEDS ORDERED: bisacodyL 10 MG SUPP PR PRN (11:34)
[2022-04-20] MEDS ORDERED: GABAPENTIN 100 MG CAP PO PRN (11:34)
[2022-04-20] MEDS ORDERED: HYDROmorphone INJ 0.5 MG/0.5 ML SYR IV PRN (11:34)
[2022-04-20] MEDS ORDERED: NALOXONE HCL 0.4 MG/1 ML VIAL/CARP IV PRN (11:34)
[2022-04-20] MEDS ORDERED: METOCLOPRAMIDE HCL INJ 5 MG/ML 2 ML VIAL IV PRN (11:34)
[2022-04-20] MEDS ORDERED: MAGNESIUM HYDROXIDE SUSP 30 ML UDC PO PRN (11:34)
--- NOTE | 2022-04-20 11:44 | Anesthesiology Progress Note ---
Date of Service April 20, 2022 Anesthesia Post Procedure Vital Signs Vital Signs: Temp Pulse Pulse Resp BP Pulse Ox O2 Del Method 04/20/22 10:50 65 14 111/71 100 Oxymask 04/20/22 11:20 64 15 106/65 93 Room Air 04/20/22 11:10 97.7 F 66 15 98/59 L 95 Room Air 04/20/22 11:00 73 18 107/57 L 94 Room Air 04/20/22 10:40 70 14 108/51 L 100 Oxymask 04/20/22 10:39 97.5 F L 70 12 107/67 100 Oxymask 04/20/22 07:13 98.2 F 71 20 130/83 97 Room Air O2 Flow Rate 04/20/22 10:50 3 04/20/22 11:20 04/20/22 11:10 04/20/22 11:00 04/20/22 10:40 6 04/20/22 10:39 6 04/20/22 07:13 Pain Intensity Left Knee: Pain Intensity: 3 Transfer of Care Handoff Completed per policy Notes Mental Status: alert / awake / arousable and participated in evaluation Patient Amnestic to Procedure: Yes Nausea / Vomiting: adequately controlled Pain: adequately controlled Airway Patency, RR, SpO2: stable & adequate BP & HR: stable & adequate Hydration State: stable & adequate Neuraxial Anesthesia: was administered and sensory block is resolving Anesthetic Complications: no major complications apparent and Pt Satisfied with anesthetic care
[2022-04-20] MEDS: SODIUM CHLORIDE 0.9% 1000ML 1,000 ML IV SCH ×2 (12:35→21:11)
[2022-04-20] MEDS: KETOROLAC 30 MG/ML VIAL IV SCH ×3 (12:35→23:54)
[2022-04-20] MEDS: ACETAMINOPHEN 500 MG TAB PO SCH ×2 (14:09→21:11)
[2022-04-20] MEDS: oxyCODONE HCL IR 5 MG TAB (IMMEDIATE RELEASE) PO PRN (18:10)
[2022-04-20] MEDS: MISSING Provider Signature on ORDER(s) SCH ×2 (19:20→23:47)
[2022-04-20] MEDS: METOPROLOL SUCC 25MG EXT REL TAB PO SCH (20:04)
[2022-04-20] MEDS: POTASSIUM CHLORIDE CRTAB 20 MEQ TABCR PO SCH (20:04)
[2022-04-20] MEDS: hydroCHLOROthiazide 25 MG TAB PO SCH (20:04)
[2022-04-20] MEDS: ASPIRIN 81 MG ECTAB PO SCH (20:05)
[2022-04-20] MEDS: LOSARTAN POTASSIUM 25 MG TAB PO SCH (20:05)
[2022-04-20] MEDS: DOCUSATE SODIUM 100 MG CAP PO SCH (20:05)
[2022-04-20] MEDS ORDERED: SENNA 8.6 MG TAB PO SCH (21:00)
[2022-04-20] MEDS ORDERED: TAMSULOSIN HCL 0.4 MG CAP PO SCH (21:00)
[2022-04-21] MEDS: MISSING Provider Signature on ORDER(s) SCH ×6 (01:06→08:58)
[2022-04-21] MEDS: KETOROLAC 30 MG/ML VIAL IV SCH (05:26)
[2022-04-21] MEDS: ACETAMINOPHEN 500 MG TAB PO SCH (05:27)
--- NOTE | 2022-04-21 06:54 | Orthopedic Progress Note ---
Date of Service April 21, 2022 Assessment & Plan (1) Status post left knee replacement: Overall is doing very well. Is not having much pain in the left knee. He will be seen by physical therapy today for ambulation and range of motion exercises. He is on aspirin for DVT prophylaxis. The dressing can be changed after physical therapy today. He can be discharged home later today. He will follow- up with orthopedics in 2 weeks. Caron Goldsmith was seen and examined at bedside this morning. Overall is doing well. Is not having much pain in the left knee. He has been up and ambulating to the bathroom. He has no complaints.. Review of Systems All systems reviewed & are unremarkable except as noted in HPI & below. Physical Exam On physical examination of the left knee, the dressing is clean and dry. His leg is out in full extension. He has active dorsiflexion plantarflexion of his left ankle. Sensation is intact throughout.. Results & Data Results & Data Laboratory Results . Diagnostic Findings Postoperative x-rays of the left knee show the prosthesis to be in anatomic alignment without any evidence of fracture, screws, or loosening. PG Care Time/CCT Total # of Minutes Spent Total Time Spent with Patient: Total time spent is greater than 50% in coordination of care (as documented) at patient's floor/unit and/or counseling patient: Coding Level of Care Code 34554 Post Operative Follow-Up Diagnoses Status post left knee replacement Z96.652
--- NOTE | 2022-04-21 06:55 | Discharge Summary ---
Date of Service April 21, 2022 Admission HPI (Per Admitting) Agus is a pleasant 61-year-old male who has been dealing with chronic worsening left knee pain. X-rays and clinical examination with diagnostics for advanced osteoarthritis of the left knee. After failing extensive conservative treatment, he presents to the office today to discuss knee replacement surgery. . Admission Exam (Per Admitting) On physical examination of the left knee, he is a slight varus deformity. He has pain over the distal medial femoral condyle. He is range of motion from 0 to 120 degrees.. Principal Diagnosis Same as "Discharge Diagnosis" noted below under Discharge Instructions. Discharge Exam On physical examination of the left knee, the dressing is clean and dry. His leg is out in full extension. He has active dorsiflexion plantarflexion of his left ankle. Sensation is intact throughout.. Discharge Data Procedures Performed Operation Date: 04/20/22 09:05 Actual Procedures p Left Total Knee Arthroplasty(Left) - Vincent Todd DO Ordered Studies 04/20/22 05:00 US - OR guided needle placemen Routine Hospital Course (1) Status post left knee replacement: On April 20, [address] [facility] and underwent a left knee replacement without complication. He had a spinal anesthetic. Postoperatively he was started on aspirin for DVT prophylaxis and transferred to the general orthopedic floors. His hospital course was uneventful. On postop day #1, his vital signs were stable and his pain was well controlled. He was able to participate well with physical therapy doing ambulation and range of motion exercises. He was then discharged home. He will follow-up with orthopedics in 2 weeks. PG Care Time/CCT Total # of Minutes Spent Total Time Spent with Patient: Total time spent is greater than 50% in coordination of care (as documented) at patient's floor/unit and/or counseling patient: Discharge Plan Discharge Items Patient Disposition: Home - Home Health Services Reason For Visit: POST OP Discharge Diagnosis: Left knee replacement Activity: Per Instructions section Non-emergency contact: Surgeon Call non-emergency contact if: your wound has increased redness and your wound has increased drainage Follow-up/Referrals: Agus Falcon DO [Primary Care Provider] - Diet: Regular Addtl Attending Provider Instructions: Activity and Therapy Recommendations: * If you are using [facility] then therapy will be provided at your home until they feel you have accomplished all of your goals. * If you are using [facility] then Physical Therapy will be provided until they feel you are ready to start Outpatient Physical Therapy. * If you are not using home therapy then Outpatient Physical Therapy should start about 3-5 days from your day of surgery. Therapy will last about 6-10 weeks * It is important not to put a pillow under your knee when you are relaxing or sleeping. It is just as important to make sure you are getting your knee perfectly straight as it is to regain your knee bend. * You were shown a series of exercises in the hospital. Do these exercises three times each day including the exercises you were shown in physical therapy. * Get up and walk several times each day. For the first four weeks, try not to stand or walk for more than one hour at a time. If you do stand or walk for more than one hour, you will not hurt anything, but your leg will likely swell. * As you feel comfortable, you may change from the walker or crutches to a cane and then to independent walking. Medications: * Narcotic You will likely be sent home from the hospital with a prescription for the narcotic pain medication that worked best throughout your stay. * Aspirin Most patients will be required to take Aspirin 81mg twice a day for 6 weeks after surgery. This is obtained [id number] and a prescription is not necessary. * Other medications may be prescribed for specific circumstances. If you have any questions, please call the office at . * Resume previous home medications unless otherwise instructed TEDs/Elastic Stockings: The white elastic stockings help limit swelling and prevent blood clots from forming in your legs.~ The more you wear them, the more they work. Wear them for six weeks. Dressing Care: The dressing can be changed after physical therapy on postop day #1. Daily dry dressing changes for a few days, especially if the incision is still draining some. If the incision is not draining then you may leave the bao open to air. If there is a little bit of drainage or if the bao are getting stuck on your clothing then cover the incision with a dry dressing. The bao will be removed at your 2 week follow-up appointment. Showering: You may shower 5 days from the day of surgery as long as the incision is no longer draining. You may shower with the bao exposed. Let soapy water run over the bao and pat them dry. Do not scrub or soak the incision. Things To Watch For: * Drainage from the incision site that occurs more than one week after your surgery. * Increased redness at the incision site. * Fever above 102 degrees Fahrenheit. * Unusual chest pain or shortness of breath. * Call [facility] at with any of the above problems Follow-Up Visit: Follow-up with Dr. Todd's PA (Vincent Strong) 2-3 weeks after your day of surgery. He will remove your bao and answer any questions. If you have any additional questions or concerns, Dr Todd is usually in the office at the same time and will be available An appointment was probably scheduled when you signed-up for surgery in the office. If you have any questions call Office Instructions: More detailed instructions as well as Frequently Asked Questions were provided in a folder by our office when you signed-up for surgery. Please review these instructions when you get home. If you have any further questions or concerns, please feel free to call the office at [phone] Pending Studies at Discharge: No Stand-Alone Forms: My [facility] Medications and DC Order Prescriptions: New aspirin 81 mg Tablet,Delayed Release (Dr/Ec) 81 mg PO BID 42 Days Qty: 84 0RF Continued potassium chloride 20 mEq tablet extended release 20 meq PO BID Qty: 180 3RF metoprolol succinate 50 mg tablet extended release 24 hr 25 mg PO BID Qty: 30 5RF tamsulosin [Flomax] 0.4 mg capsule 0.4 mg PO HS Qty: 90 1RF losartan 25 mg tablet 25 mg PO BID Qty: 60 5RF tramadol 50 mg tablet 50 mg PO Q8H PRN (Reason: pain) Qty: 30 0RF hydrochlorothiazide 25 mg tablet 25 mg PO BID Qty: 180 3RF Excedrin Extra Strength 250-250-65 mg tablet 1 tab PO TID PRN (Reason: Migraine Headache) Qty: 30 gabapentin 100 mg capsule 100 mg PO TID PRN (Reason: Pain) clonidine HCl 0.1 mg tablet 0.1 mg PO DAILY amlodipine [Norvasc] 10 mg tablet 10 mg PO QAM oxycodone-acetaminophen [Percocet] 5-325 mg tablet 1 tab PO Q6H PRN (Reason: pain) Qty: 30 0RF Changed meloxicam 15 mg tablet 15 mg PO QAM Qty: 30 2RF Discontinued ibuprofen [Advil] 200 mg tablet 600 mg PO BID PRN (Reason: Pain) Admission Data Admit Date/Time: 04/20/22 10:40 Attending Provider: Vincent Todd Admit Provider: Vincent Todd Primary Care Provider: Agus Falcon
[2022-04-21] MEDS ORDERED: dexAMETHasone 4 MG TAB PO SCH (08:00)
[2022-04-21] MEDS: LOSARTAN POTASSIUM 25 MG TAB PO SCH (08:23)
[2022-04-21] MEDS: ASPIRIN 81 MG ECTAB PO SCH (08:23)
[2022-04-21] MEDS: DOCUSATE SODIUM 100 MG CAP PO SCH (08:23)
[2022-04-21] MEDS: POTASSIUM CHLORIDE CRTAB 20 MEQ TABCR PO SCH (08:24)
[2022-04-21] MEDS: METOPROLOL SUCC 25MG EXT REL TAB PO SCH (08:24)
[2022-04-21] MEDS: hydroCHLOROthiazide 25 MG TAB PO SCH (08:24)
[2022-04-21] MEDS ORDERED: amLODIPine BESYLATE 5 MG TAB PO SCH (09:00)
[2022-04-21] MEDS ORDERED: cloNIDine HCL 0.1 MG TAB PO SCH (09:00)
[2022-04-21] MEDS ORDERED: MULTIVITAMIN TAB PO SCH (09:00)
[2022-04-21] MEDS: oxyCODONE HCL IR 5 MG TAB (IMMEDIATE RELEASE) PO PRN (09:09)
== END 2022-04-21 11:34 | disposition home health service (06) ==
LOC: ASU 06:27 → 3E 06:27